=== PATIENT | female | born 1950 | race Caucasian/White ===

== ENCOUNTER 2021-04-28 11:09 | Outpatient (CLI) | payer MEDICARE, OTHER | END 2021-04-28 11:10 | disposition home or self-care (01) | LOC: EDBD 11:09 → LAB 11:09 | PROVIDERS: ATTEND Internal Medicine | DX: Z01.812 Encounter for preprocedural laboratory examination (principal); M81.0 Age-related osteoporosis without current pathological fracture; Z53.9 Procedure and treatment not carried out, unspecified reason | CPT/HCPCS: 80053 ==

== ENCOUNTER 2022-02-12 17:46 | Outpatient (CLI) | payer MEDICARE, OTHER ==
--- NOTE | 2022-02-13 02:52 | Ultrasound Report ---
PROCEDURE: Head or Neck Soft Tissue INDICATIONS: PAROTID GLAND PAIN AND SWELLING TECHNIQUE: Real time scanning was performed of the neck region of interest, with image documentation . COMPARISON: None. FINDINGS: Ultrasound evaluation in the area of clinical concern in the right parotid gland demonstrates no disc rete cystic or solid mass. No dilated parotid duct identified. No enlarged cervical lymph nodes identified. The right thyroid lobe measures 3.8 x 2 x 1.6 cm and the left thyroid lobe measures 5.1 x 2.8 x 1.7 c m. The isthmus measures up to 0.2 cm. Multiple nodules are demonstrated within the thyroid bilaterall y. On the right, numerous small cystic nodules measuring less than 0.5 cm are noted. On the left, multiple thyroid nodules are also demonstrated including: Nodule number: 1 Location: Superior left lobe Size: 0.8 x 0.5 x 0.7 cm. Composition: Solid Echogenicity: Isoechoic Shape: wider than tall. Margins: Smooth. Echogenic foci: None. Total points: 3 ACR TI-RADS category: 3 Nodule number: 2 Location: Mid left lobe. Size: 1.0 x 0.8 x 0.9 cm. Composition: Predominately solid Echogenicity: Hypoechoic Shape: wider than tall. Margins: Smooth Echogenic foci: Punctate echogenic foci. Total points: 7 ACR TI-RADS category: 5 Nodule number: 3 Location: Inferomedial left lobe Size: 1.1 x 1.5 x 0.8 cm. Composition: Cystic Echogenicity: Anechoic Shape: Taller than wide Margins: Smooth Echogenic foci: None. Total points: 3 ACR TI-RADS category: 3 IMPRESSION: 1. No discrete cystic or solid mass demonstrated in the right parotid gland in the area of clinical c oncern. 2. No enlarged cervical lymph nodes identified. 3. Multiple thyroid nodules including a Ti-RADS 5 nodule in the left lobe. Ultrasound-guided fine-nee dle aspiration is recommended. Follow-up of the remaining nodules is recommended in 12 months. ACR TI-RADS definitions and recommendations: TI-RADS 1 (benign): 0 points. FNA not needed. TI-RADS 2 (not suspicious): 2 points. FNA not needed. TI-RADS 3 (mildly suspicious): 3 points. "FNA if 2.5 cm or larger, follow up if 1.5 cm or larger (at 1, 3, and 5 years). TI-RADS 4 (moderately suspicious): 4-6 points. "FNA if 1.5 cm or larger, follow up if 1 cm or larger (at 1, 2, 3, and 5 years). TI-RADS 5 (highly suspicious): 7 points or more. "FNA if 1 cm or larger, follow up if 0.5 cm or larger (every year for 5 years). Reviewed by: Lukasz Glover MD on 02/13/2022 2:51 AM PDT Approved by: Lukasz Glover MD on 02/13/2022 2:51 AM PDT Station ID: [id number]
== END 2022-02-12 17:47 | disposition home or self-care (01) ==
LOC: DI 17:46
PROVIDERS: ATTEND Internal Medicine
DX: E04.2 Nontoxic multinodular goiter (principal)

== ENCOUNTER 2022-03-09 11:01 | Outpatient (CLI) | payer MEDICARE, OTHER ==
[~2022-03-09 11:01] MED LIST: LIDOCAINE-MPF 1% 10 ML AMP ONE
[2022-03-09] MEDS ORDERED: LIDOCAINE-MPF 1% 10 ML AMP SUBQ ONE (13:31)
--- NOTE | 2022-03-09 15:40 | Ultrasound Report ---
PROCEDURE: FNA Bx w/US Gnd 1st les INDICATIONS: THYROID NODULE TECHNIQUE: The indications, alternatives, benefits, risks, and complications of the procedure were explained to the patient. Written informed consent was obtained and placed in the chart. The area of interest wa s examined sonographically and a site was chosen for ultrasound guided percutaneous sampling. The sk in was prepared and draped in the usual fashion, and anesthetized with 1% lidocaine infiltrated from the skin down to the lesion. Multiple passes were then performed, with contents emptied into an appr [facility] pathology specimen container. A bandage was applied to the area of access at completion of t he study. COMPARISON: None. FINDINGS: Location(s) of lesion(s) sampled: Left inferior thyroid lobe Oral: 25 gauge hypodermic needles. Number of passes: 5 Medications: 1% lidocaine for local anaesthesia. Complications: None. IMPRESSION: Successful ultrasound-guided left inferior thyroid lobe nodule fine needle aspiration, with cytology results pending. Reviewed by: Chetan Gautam MD on 03/09/2022 3:39 PM PDT Approved by: Chetan Gautam MD on 03/09/2022 3:39 PM PDT Station ID: [id number]
== END 2022-03-09 11:02 | disposition home or self-care (01) ==
LOC: DI 11:01
PROVIDERS: ATTEND Internal Medicine
DX: E04.1 Nontoxic single thyroid nodule (principal)
CPT/HCPCS: 10005

== ENCOUNTER 2022-04-28 11:23 | Outpatient (CLI) | payer MEDICARE, OTHER ==
[2022-04-28 11:52] LABS: ALBUMIN 4.4 g/dL (3.2-5.5); ALBUMIN/GLOBULIN RATIO 1.5 (1.0-2.2); BILIRUBIN,TOTAL 0.8 mg/dL (0.2-1.0); CALCIUM 9.9 mg/dL (8.5-10.3); CREATININE 0.9 mg/dL (0.4-1.0); POTASSIUM 3.7 mmol/L (3.5-5.0); TOTAL PROTEIN 7.3 g/dL (6.7-8.2)
== END 2022-04-28 11:24 | disposition home or self-care (01) ==
LOC: LAB 11:23
PROVIDERS: ATTEND Internal Medicine
DX: M81.0 Age-related osteoporosis without current pathological fracture (principal)
CPT/HCPCS: 36415; 80053

== ENCOUNTER 2022-07-16 15:47 | Outpatient (CLI) | payer MEDICARE, OTHER ==
[2022-07-16 15:57] LABS: BASOPHILS # (AUTO) 0.1 10^3/uL (0.0-0.1); BASOPHILS % (AUTO) 0.8 %; EOSINOPHILS # (AUTO) 0.1 10^3/uL (0.0-0.7); EOSINOPHILS % (AUTO) 1.1 %; HCT - HEMATOCRIT 42.6 % (37.0-47.0); HGB - HEMOGLOBIN 14.7 g/dL (12.0-16.0); LYMPHOCYTES # (AUTO) 2.7 10^3/uL (1.5-3.5); LYMPHOCYTES % (AUTO) 36.9 %; MEAN CORPUSCULAR HGB CONC 34.5 g/dL (32.0-36.0); MEAN CORPUSCULAR VOLUME 89.9 fL (81.0-99.0); MEAN PLATELET VOLUME 9.6 fL (7.9-10.8); MONOCYTES # (AUTO) 0.8 10^3/uL (0.0-1.0); MONOCYTES % (AUTO) 11.4 %; NEUTROPHILS # (AUTO) 3.5 10^3/uL (1.5-6.6); NEUTROPHILS % (AUTO) 49.2 %; PLT - PLATELET COUNT 264 10^3/uL (130-450); RED BLOOD COUNT 4.74 10^6/uL (4.20-5.40); RED CELL DISTRIBUTION WIDTH 12.4 % (12.0-15.0); WHITE BLOOD COUNT 7.2 x10^3/uL (4.8-10.8)
[2022-07-16 16:14] LABS: ALBUMIN 4.5 g/dL (3.2-5.5); ALBUMIN/GLOBULIN RATIO 1.6 (1.0-2.2); ALKALINE PHOSPHATASE 59 IU/L (42-121); ALT ALANINE AMINOTRANSFERASE 27 IU/L (10-60); AST ASPARTATE AMINOTRANSFERASE 27 IU/L (10-42); BILIRUBIN,TOTAL 0.7 mg/dL (0.2-1.0); BUN - BLOOD UREA NITROGEN 20 mg/dL (6-20); CARBON DIOXIDE - CO2 25 mmol/L (21-32); CHLORIDE 103 mmol/L (101-111); CREATININE 1.2 mg/dL (0.4-1.0); GFR - MDRD 44 (>89); GLUCOSE 116 mg/dL (70-100); POTASSIUM 3.4 mmol/L (3.5-5.0); SODIUM 137 mmol/L (135-145); TOTAL PROTEIN 7.3 g/dL (6.7-8.2)
[2022-07-16 16:18] LABS: CRP - C-REACTIVE PROTEIN < 1.0 mg/dL (0-1.0)
[2022-07-20 18:07] LABS: ANTI-DNA (DS) AB QN <1 IU/mL (0-9); CENTROMERE B ANTIBODIES <0.2 AI (0.0-0.9); CHROMATIN ANTIBODIES <0.2 AI (0.0-0.9); JO-1 AB <0.2 AI (0.0-0.9); RIBOSOMAL P ANTIBODIES <0.2 AI (0.0-0.9); RNP ANTIBODIES <0.2 AI (0.0-0.9); SCLERODERMA-70 ANTIBODIES <0.2 AI (0.0-0.9); SJOGREN'S ANTI-SS-A <0.2 AI (0.0-0.9); SJOGREN'S ANTI-SS-B <0.2 AI (0.0-0.9); SMITH ANTIBODIES <0.2 AI (0.0-0.9); SMITH/RNP ANTIBODIES <0.2 AI (0.0-0.9)
== END 2022-07-16 15:48 | disposition home or self-care (01) ==
LOC: LAB 15:47
PROVIDERS: ATTEND Nurse Practitioner
DX: L71.9 Rosacea, unspecified (principal); R21 Rash and other nonspecific skin eruption
CPT/HCPCS: 36415; 80053; 85025; 85651; 86140; 86225; 86235

== ENCOUNTER 2022-11-02 11:41 | Outpatient (CLI) | payer MEDICARE, OTHER ==
[2022-11-02 12:13] LABS: ALBUMIN 4.4 g/dL (3.2-5.5); ALBUMIN/GLOBULIN RATIO 1.4 (1.0-2.2); BILIRUBIN,TOTAL 0.8 mg/dL (0.2-1.0); CALCIUM 9.7 mg/dL (8.5-10.3); CREATININE 0.9 mg/dL (0.4-1.0); POTASSIUM 3.6 mmol/L (3.5-5.0); TOTAL PROTEIN 7.6 g/dL (6.7-8.2)
== END 2022-11-02 11:42 | disposition home or self-care (01) ==
LOC: LAB 11:41
PROVIDERS: ATTEND Internal Medicine
DX: M81.0 Age-related osteoporosis without current pathological fracture (principal); Z79.899 Other long term (current) drug therapy
CPT/HCPCS: 36415; 80053